=== PATIENT | male | born 1965 | race Caucasian/White ===

== ENCOUNTER 2016-10-06 14:46 | Outpatient (CLI) ==
[2016-07-06 10:52] VITALS: BMI 40.6
[2016-10-06 16:35] LABS: BILIRUBIN,URINE Negative (NEGATIVE); KETONES,URINE Negative (NEGATIVE); LEUKOCYTE ESTERASE ,URINE Negative (NEGATIVE); NITRITE,URINE Negative (NEGATIVE); PH,URINE 5.5 (5-9); PROTEIN,URINE Negative (NEGATIVE); URINE, BLOOD Trace-intact (NEGATIVE)
[2016-10-06 16:40] LABS: ADD URINE MICROSCOPIC YES
== END 2016-10-06 14:47 | disposition home or self-care (01) ==
LOC: LAB 14:46
PROVIDERS: ATTEND General Practice
DX: Z79.899 Other long term (current) drug therapy (principal)
CPT/HCPCS: 81001

== ENCOUNTER 2016-10-06 14:50 | Inpatient (IN) ==
[2016-10-06 15:46] VITALS: BMI 32.1
[2016-10-06 18:07] LABS: BASOPHILS # (AUTO) 0.1 K/uL (0-0.2); BASOPHILS % (AUTO) 0.9 % (0.0-3.0); EOSINOPHILS # (AUTO) 0.2 K/ul (0.0-0.7); EOSINOPHILS % (AUTO) 3.2 % (0.0-7.0); HEMATOCRIT 35.8 % (42.0-52.0); HEMOGLOBIN 13.7 g/dl (14.0-18.0); IMMATURE GRANULOCYTE % (AUTO) 1.1 % (0.0-5.0); LYMPHOCYTES # (AUTO) 1.9 K/uL (0.60-3.4); LYMPHOCYTES % (AUTO) 29.2 (10.0-50.0); MEAN CORPUSCULAR HEMOGLOBIN 32.1 pg (27.0-31.0); MEAN CORPUSCULAR HGB CONC 38.3 (31.8-35.4); MEAN CORPUSCULAR VOLUME 83.8 fl (80.0-94.0); MONOCYTES # (AUTO) 0.4 K/uL (0.4-2.0); MONOCYTES % (AUTO) 6.3 (0-10); NEUTROPHILS # (AUTO) 3.8 K/ul (2.0-6.9); NEUTROPHILS % (AUTO) 59.3; PLATELET COUNT 403 10^3/uL (140-440); RED BLOOD COUNT 4.27 10^6/ul (4.70-6.10); WHITE BLOOD COUNT 6.48 K/ul (4.2-10.2)
[2016-10-06 18:25] LABS: ALBUMIN 3.7 g/dL (3.4-5.0); ALBUMIN/GLOBULIN RATIO 0.84; ANION GAP 22.1; BILIRUBIN,TOTAL 0.46 mg/dL (0.00-1.20); BUN/CREATININE RATIO 9.48; CALCIUM 9.5 mg/dL (8.2-10.2); CREATININE 1.16 mg/dL (0.60-1.10); POTASSIUM 4.1 mmol/L (3.5-5.1); TOTAL PROTEIN 8.1 g/dL (6.4-8.2)
[2016-10-06 19:22] LABS: ABG BASE EXCESS 1 (-2.0-2.0); ABG HCO3 25.5 (22.0-26.0); ABG PCO2 38.5 mmHg (35-45); ABG PH 7.429 (7.35-7.45); ABG TCO2 27 (22.0-28.0)
[2016-10-06] MEDS: HUMALOG SUBCUT PRN ×2 (19:40→21:14)
[2016-10-06] MEDS ORDERED: NON-FORMULARY MEDICATION (Lisinopril [Lisinopril] 20 MG) PO SCH ×22 (20:00)
[2016-10-06 20:02] LABS: AMYLASE 29 U/L (25-115); LIPASE 93 U/L (8-78)
[2016-10-06] MEDS: SODIUM CHLORIDE 0.9%-KCL 20 MEQ 1,000 ML IV SCH (20:12)
--- NOTE | 2016-10-06 20:23 | DI ---
EXAM: Chest PA and lateral HISTORY: Cough FINDINGS: The lungs remain clear since 05/01/2009. The aorta is atherosclerotic. The lungs are hy perinflated. The heart size is normal. The bones are intact. No pneumothorax or pleural effusions ar e detected. IMPRESSION: No acute cardiopulmonary disease. Suggestion of underlying emphysema. Aortic atherosclerosis.
--- NOTE | 2016-10-06 20:27 | CT ---
EXAM: CT scan of the abdomen and pelvis without contrast HISTORY: Pain, cough. TECHNIQUE: Imaging of the abdomen and pelvis was performed without contrast. 3 mm thin axial image s and coronal and sagittal reconstructions were provided for interpretation. Comparison CT scan of the abdomen and pelvis dated 03/31/2016. FINDINGS: The liver, spleen, pancreas, adrenal glands and kidneys appear normal. The proximal uret ers are normal size. The small and large bowel loops caliber. There is no free air. The appendix appears normal. No retroperitoneal abnormalities are seen. No acute abnormalities are seen within the anterior abdominal wall. The helical images obtained through the pelvis demonstrate a normal appearance of the rectum, urinar y bladder. There is no free fluid seen within the pelvis. Scattered diverticula are seen within the sigmoid colon without acute inflammation. No lytic or blastic lesions are seen within the osseou s structures. No lytic or blastic lesions are seen within the osseous structures. There is a tiny n odular density seen in the right lung base seen on axial image number 3. The lesion measures approx imately 5-6 mm maximum. The lung bases are otherwise clear. IMPRESSION: There is no bowel obstruction or acute inflammatory changes seen within the abdomen and pelvis. There is no ureteral obstruction. Unexpected result: There is a nodular density seen in the right lung base measuring 5-6 mm maximum. A 6-month follow-up CT scan of the chest without contrast can be obtained to check for stability o r resolution.
[2016-10-06] MEDS ORDERED: ZESTRIL ONE ×2 (20:58→21:02)
[2016-10-06] MEDS: MAG-OX PO SCH (23:42)
[2016-10-07] MEDS: SODIUM CHLORIDE 0.9%-KCL 20 MEQ 1,000 ML IV SCH ×4 (02:13→22:39)
[2016-10-07] MEDS: HUMALOG SUBCUT PRN ×4 (05:58→17:04)
[2016-10-07] MEDS: MAG-OX PO SCH (08:09)
--- NOTE | 2016-10-07 08:58 | HP ---
CHIEF COMPLAINT: Uncontrolled diabetes, blood sugar 400+ to above Weight loss, 80 pounds Intermittent abdominal pain and not feeling well. HISTORY OF PRESENT ILLNESS: The patient last May 26, 2016 was admitted to the hospital because of abdominal pain. The pain was mostly epigastric and left upper quadrant with nausea but not vomiting or diarrhea. The patient was discharged with acute pancreatitis metabolic, hypertriglyceridemia as well Diabetes Mellitus type 2 uncontrolled improved. The patient's other chronic problems will be listed in the past personal history. PAST PERSONAL HISTORY: Acute pancreatitis, metabolic Hypertension Diabetes Mellitus, type 2, uncontrolled improved control at discharge Elevated fasting insulin, normal plasma c peptide level Elevated BMI 40 History of depression History of anxiety History of migraine History of injury to left ring finger History of chronic tobacco use and abuse, stopped 15 months ago History of substance abuse consisting of marijuana, meth and crack cocaine History of confinement in the alf History of GERD FAMILY HISTORY: Father of abdominal aneurism Mother has diabetes mellitus as well Sister SOCIAL HISTORY: The patient is and resides with his . He used to smoke until 15 months ago. He has history of substance abuse consisting of marijuana, meth and crack cocaine. MEDICATIONS: Pravastatin 40mg near bedtime Metformin 1,000mg twice a day Lisinopril 20mg daily The patient has not taken these medications for about a month. He had lost some 80 pounds, his BMI is now 32.1 from 40. He weighted 295 pounds and went down to 210 pounds at home but is now back to 237. ALLERGIES: No known allergies. REVIEW OF SYSTEMS: CONSTITUTIONAL: The patient is alert without any fever or chills but he is complaining about some intermittent abdominal pain. He is still consuming alcohol but much less. Claims to have some fatigue because of the weight loss although he had regained some 20+ pounds. CYANIDE CASE HARDENER: The patient has history of migraine headaches but no headache at the present time. There is no history of seizures or any transient weakness or speech difficulties. VISUAL: Denies any double vision, blurred vision or transient loss of vision. AUDITORY: Hearing is adequate. No tinnitus, no drainage and no pain. RESPIRATORY: Denies any cough or shortness of breath with usual exertion CARDIOVASCULAR: Denies any chest pain or chest tightness. GASTROINTESTINAL: The patient complains to have some intermittent abdominal pain but not significant. He had lost some 80 pounds but gained a few back. Reason for weight loss is undetermined. GENITOURINARY: The patient denies any pain frequency or urgency of urination and blood. MUSCULOSKELETAL: The patient has low back pain, this is a chronic problem but much less. INTEGUMENT: No rash pruritus ENDOCRINE: The patient is a type 2 diabetic that hadn't been on medication and sugar is markedly elevated beyond the glucometer. The patient does drink plenty of liquids. HEMATOLOGIC: No history of prolonged bleeding or easy bruising. PSYCHIATRIC: The patient has normal affect but has history of depression as well as anxiety. PHYSICAL EXAMINATION: GENERAL: The patient is a 51 year old male admitted to the hospital because of markedly elevated blood sugar without any medication and fatigue and some intermittent abdominal pain with significant weight loss about 80 pounds in 6 months. This patient had previous diagnosis of pancreatitis metabolic. VITAL SIGNS: Temperature 98.3, pulse 73, blood pressure left 128/82 and right 132/84, respiratory rate 18, oxygen saturation 95% on room air. He is listed at 6'0 at 237 pounds and he was listed at 6'1" on previous admission 6 months ago. HEAD: Unremarkable FACE: Symmetrical and equal with facial weakness and no tenderness in the frontal maxillary sinus areas to palpation under pressure. EYES: Pupils equal/reactive to light. About 3mm in size and reactive. Conjunctivae not pale. Sclerae not icteric. MOUTH: Most teeth are missing. Does have partial dentures both upper and lower. THROAT: No inflammation, tumors or exudate. NECK: No masses. No bruit. No tenderness. No rigidity. CHEST: Symmetrical and equal with good expansion and no tenderness to percussion. LUNGS: Breath sounds are heard in both sides with no rales or wheezing. HEART: Audible and regular with good tones. No murmurs. ABDOMEN: Flat, soft with no tenderness. No masses palpable. Bowel sounds active and no Bruit. EXTERNAL GENITALIA: Not examined RECTAL: Not performed LOWER EXTREMITIES: Symmetrical and equal with no significant ankle edema. Both Posterior and Tibials pulses are both present UPPER EXTREMITIES: Symmetrical and equal. ASSESSMENT: 1. Diabetes mellitus, uncontrolled levi hyperglycemia 2. Weight loss, 80 pounds in 6 months etiology undetermined 3. Hypertension 4. Non-complaint, no medication for the last one month or so. 5. History of GERD 6. History of Depression, no evident now 7. History of anxiety, not on medication 8. History of substance abuse; marijuana, methamphetamine and crack cocaine 9. History of migraine 10.History of injury to the left ring finger 11. History of Pancreatitis, metabolic. MTDD
[2016-10-07] MEDS ORDERED: ZESTRIL PO SCH (09:00)
[2016-10-07] MEDS ORDERED: LANTUS SUBCUT SCH (21:00)
[2016-10-08 05:08] LABS: BASOPHILS # (AUTO) 0.1 K/uL (0-0.2); EOSINOPHILS # (AUTO) 0.2 K/ul (0.0-0.7); EOSINOPHILS % (AUTO) 3.5 % (0.0-7.0); HEMATOCRIT 38.1 % (42.0-52.0); IMMATURE GRANULOCYTE % (AUTO) 1.7 % (0.0-5.0); LYMPHOCYTES # (AUTO) 1.5 K/uL (0.60-3.4); LYMPHOCYTES % (AUTO) 28.8 (10.0-50.0); MEAN CORPUSCULAR HEMOGLOBIN 29.9 pg (27.0-31.0); MEAN CORPUSCULAR HGB CONC 34.1 (31.8-35.4); MEAN CORPUSCULAR VOLUME 87.6 fl (80.0-94.0); MONOCYTES # (AUTO) 0.3 K/uL (0.4-2.0); MONOCYTES % (AUTO) 6.5 (0-10); NEUTROPHILS % (AUTO) 58.5; PLATELET COUNT 198 10^3/uL (140-440); RED BLOOD COUNT 4.35 10^6/ul (4.70-6.10)
[2016-10-08] MEDS: SODIUM CHLORIDE 0.9%-KCL 20 MEQ 1,000 ML IV SCH (05:19)
[2016-10-08 05:22] LABS: ALANINE AMINOTRANSFERASE 15 U/L (12-78); ALBUMIN 2.9 g/dL (3.4-5.0); ALBUMIN/GLOBULIN RATIO 0.88; ALKALINE PHOSPHATASE 65 U/L (50-136); ANION GAP 14.3; ASPARTATE AMINO TRANSFERASE 11 U/L (15-37); BILIRUBIN,TOTAL 0.31 mg/dL (0.00-1.20); BLOOD UREA NITROGEN 10 mg/dL (7-18); BUN/CREATININE RATIO 12.19; CALCIUM 8.5 mg/dL (8.2-10.2); CARBON DIOXIDE 16 mmol/L (21-32); CHLORIDE 104 mmol/L (98-107); CHOL/HDL RATIO 22.6 (4.5-6.4); CHOLESTEROL 406 mg/dL (0-200); CREATININE 0.82 mg/dL (0.60-1.10); GLUCOSE 373 mg/dL (70-100); HDL CHOLESTEROL 18 mg/dL (35-60); POTASSIUM 4.3 mmol/L (3.5-5.1); SODIUM 130 mmol/L (136-145); TOTAL PROTEIN 6.2 g/dL (6.4-8.2)
[2016-10-08 05:31] LABS: TRIGLYCERIDES > 1420 mg/dL (30-150)
[2016-10-08] MEDS: HUMALOG SUBCUT PRN ×2 (07:58→11:06)
[2016-10-08] MEDS: MAG-OX PO SCH (07:59)
--- NOTE | 2016-10-08 09:36 | PN ---
DATE OF VISIT: 10/07/16 SUBJECTIVE: The patient is alert and oriented times four not dyspneic or tachypneic. He denies any abdominal pain or chest pain. His appetite seems to be good and consumed 100% of his meals. VITALS: Temperature 97.7, pulse 73, blood pressure 108/60, respiratory 20 and oxygen saturation 92% at room air probably not correct previous ones were 96%. This patient was placed back on Lisinopril and this will be discontinued since his blood pressure had been normal. This blood pressure may have returned to normal since he had lost some 80 pounds. LUNGS: Clear to auscultation in both sides. HEART: Normal sinus rhythm ABDOMEN: Non tender Blood sugar is lower. This patient will be receiving Lantus 40 unit SUBCUT in the evening on sliding scale per protocol for breakfast, lunch and supper. The patient's CAT scan of the abdomen and pelvis without contrast showed no bowel obstruction, no acute inflammatory changes within the abdomen and pelvis, no ureteral obstruction, normal spleen, pancreas, adrenals and kidneys. This patient had previous pancreatitis and fortunately didn't develop pancreatic cysts. The nodular density right lung base 5-6mm in size [address] Chest X-ray did not visualize this 5-6mm nodule at the right lung base. MTDD
[2016-10-08 14:22] VITALS: BP 122/80; TEMP 98.1
[2016-10-09 07:30] LABS: C-PEPTIDE 2.3 ng/mL (1.1-4.4)
--- NOTE | 2016-10-10 11:35 | DS ---
PATIENT IDENTIFICATION: 51 year old male admitted to the hospital because of uncontrolled blood sugar and he had not been taking any medication for his diabetes for some time. He claimed to have lost his insurance. He now has an insurance again. He had lost also some 80 pounds from the last time he was seen at the office. He claimed to have some intermittent abdominal pain and fatigue. Because of the hyperglycemia and loss of weight, plus fatigue and lack of medication, admission was felt necessary in order to define the patient' s problems. HOSPITAL COURSE: The patient is prescribed medication which he had not been taking consisting of Pravastatin 40 mg daily, Metformin 1,000 mg twice a day, Lisinopril 20 mg daily. LUNGS: Clear to auscultation. HEART: Audible and regular with no murmurs. ABDOMEN: Unremarkable. The initial blood sugar was 553 mg percent. Arterial blood gases with pH of 7.429, PCO2 38.5, PO2 73, bicarbonate 25.5, total CO2 27, oxygen saturation 95 at room air. The A1C was 13.4. GFR estimated 66. Lipase slightly elevated at 93, Amylase normal. The fasting triglycerides the next day was 1420, cholesterol 406, HDL 18, cholesterol/HDL ratio 22.6. I had explained this to the patient, as well as his that this is markedly abnormal. The HDL that is very low is an independent predictor of coronary artery disease. The patient was placed on Lantus Insulin and sliding scale. The blood sugars were fluctuating and was covered ranging from 265 to 513. A fasting Insulin is 5.0. Plasma C-Peptid is normal at 2.3. ANAYELI 65 autoantibody-no results at this time. The patient claimed to be feeling well and he wanted to go home since he is moving from one residence to a new one. He denies any chest pain or abdominal pain and he denies any headaches or any visual disturbances. He denies any pain on urination and has no difficulty breathing. I had advised him about the Insulin that he is using and that if he is exerting, that he should check his sugar since exertion sometimes would bring the sugar down and might produce hypoglycemia, which otherwise will not be if he is not exerting. LUNGS: Clear to auscultation in both sides at discharge. HEART: Normal sinus rhythm. NECK: No masses, no bruit. EXTREMITIES: He had movement of all extremities. FINAL DIAGNOSES: 1. DIABETES MELLITUS, UNCONTROLLED 2. NONCOMPLIANCE 3. SEVERE HYPERTRIGLYCERIDEMIA 4. HISTORY OF PANCREATITIS, METABOLIC 5. QUESTIONABLE PANCREATITIS, SLIGHTLY ELEVATED LIPASE 93, UPPER NORMAL 78. MEDICATIONS AT DISCHARGE: 1. Lantus Solostar 40 Units subcutaneously at 9 p.m. 2. Humalog plain per sliding scale before breakfast, before lunch and before supper. 3. Metformin 850 mg twice a day. 4. Crestor 20 mg daily. Record the blood tests results before breakfast, before lunch and before supper and bring the results on follow up appointment a week from today. Test strips were ordered, as well as Lancets were refilled. PROGNOSIS: Guarded. MTDD
== END 2016-10-08 15:55 | disposition home or self-care (01) | DRG 637 ==
LOC: MEDSURG B 14:50
PROVIDERS: ADMIT General Practice; ATTEND General Practice
DX: E11.65 Type 2 diabetes mellitus with hyperglycemia (principal); K85.90 Acute pancreatitis without necrosis or infection, unspecified; T38.3X6A Underdosing of insulin and oral hypoglycemic [antidiabetic] drugs, initial encounter; T46.4X6A Underdosing of angiotensin-converting-enzyme inhibitors, initial encounter; T46.6X6A Underdosing of antihyperlipidemic and antiarteriosclerotic drugs, initial encounter; E78.1 Pure hyperglyceridemia; R63.4 Abnormal weight loss; R53.83 Other fatigue; R10.9 Unspecified abdominal pain; Z91.120 Patient's intentional underdosing of medication regimen due to financial hardship; Z79.899 Other long term (current) drug therapy; Z87.19 Personal history of other diseases of the digestive system; Z68.32 Body mass index [BMI] 32.0-32.9, adult
CPT/HCPCS: 36415; 80053; 80061; 81001; 82150; 82803; 82962; 83036; 83519; 83525; 83690; 84443; 84681; 85025; 93005; 93010; 97802; 99223; 99232; 99239

== ENCOUNTER 2017-02-25 11:52 | Outpatient (CLI) | payer OTHER ==
[2017-02-25 13:30] LABS: BASOPHILS # (AUTO) 0.1 K/uL (0-0.2); BASOPHILS % (AUTO) 0.7 % (0.0-3.0); EOSINOPHILS # (AUTO) 0.4 K/ul (0.0-0.7); HEMATOCRIT 48.2 % (42.0-52.0); HEMOGLOBIN 16.8 g/dl (14.0-18.0); IMMATURE GRANULOCYTE % (AUTO) 0.8 % (0.0-5.0); LYMPHOCYTES # (AUTO) 2.4 K/uL (0.60-3.4); MEAN CORPUSCULAR HEMOGLOBIN 29.2 pg (27.0-31.0); MEAN CORPUSCULAR HGB CONC 34.9 (31.8-35.4); MEAN CORPUSCULAR VOLUME 83.7 fl (80.0-94.0); MONOCYTES # (AUTO) 0.4 K/uL (0.4-2.0); MONOCYTES % (AUTO) 4.9 (0-10); NEUTROPHILS # (AUTO) 5.8 K/ul (2.0-6.9); NEUTROPHILS % (AUTO) 63.6; PLATELET COUNT 250 10^3/uL (140-440); RED BLOOD COUNT 5.76 10^6/ul (4.70-6.10); WHITE BLOOD COUNT 9.03 K/ul (4.2-10.2)
[2017-02-25 13:44] LABS: ALBUMIN 4.1 g/dL (3.4-5.0); ALBUMIN/GLOBULIN RATIO 1.24; ANION GAP 14.7; BILIRUBIN,TOTAL 0.63 mg/dL (0.00-1.20); BILIRUBIN,URINE 1+ (NEGATIVE); BUN/CREATININE RATIO 19.31; CALCIUM 10.1 mg/dL (8.2-10.2); CHOL/HDL RATIO 6.2 (4.5-6.4); CREATININE 0.88 mg/dL (0.60-1.10); KETONES,URINE Negative (NEGATIVE); LEUKOCYTE ESTERASE ,URINE Negative (NEGATIVE); NITRITE,URINE Negative (NEGATIVE); PH,URINE 5.5 (5-9); POTASSIUM 3.7 mmol/L (3.5-5.1); PROTEIN,URINE 2+ (NEGATIVE); TOTAL PROTEIN 7.4 g/dL (6.4-8.2); URINE, BLOOD Negative (NEGATIVE)
[2017-02-25 13:46] LABS: ADD URINE MICROSCOPIC YES
== END 2017-02-25 11:53 | disposition home or self-care (01) ==
LOC: LAB 11:52
PROVIDERS: ATTEND General Practice
DX: E11.9 Type 2 diabetes mellitus without complications (principal); I10 Essential (primary) hypertension; Z79.899 Other long term (current) drug therapy
CPT/HCPCS: 36415; 80053; 80061; 81001; 83036; 85025

== ENCOUNTER 2018-03-04 19:07 | Emergency (ER) | payer OTHER ==
[2018-03-04 19:11] VITALS: BP 144/97; TEMP 98.7; BMI 31.1
[2018-03-04] MEDS ORDERED: KEFLEX PO STA (19:31)
--- NOTE | 2018-03-04 19:33 | ED.PDOC ---
General ED Provider: Dr. IDALIA DIMAS Chief Complaint: Finger Pain/Injury Stated Complaint: Came left index finger paina nd swelling got Injured 3-4 days ago,, while working on and project. he has DM2, Time Seen by Physician: 20:24 Mode of Arrival: Walk-In Information Source: Patient [facility] and Triage Documentation Reviewed and Agree: Yes Reviewed sepsis parameters & appropriate labs ordered?: Yes System Inflammatory Response Syndrome: Not Applicable Sepsis Protocol: For patient's 13 years and over: Temp is 96.8 and below OR 101 and greater Pulse >90 BPM Resp >20/minute Acutely Altered Mental Status Are patient's symptoms suggestive of a new infection, such as: -Pneumonia -Skin, Soft Tissue -Endocarditis -UTI -Bone, Joint Infection -Implantable Device -Acute Abdominal Infection -Wound Infection -Meningitis -Blood Stream Catheter Infection -Unknown Skin Complaint Exam - Skin/Soft Tissue Complaint/Exam Onset/Duration: left index finger Symptoms Are: Still present Timing: Constant Initial Severity: Mild Current Severity: Mild Character: Reports: Redness, Swelling Aggravating: Reports: Touch Alleviating: Reports: None Associated Signs and Symptoms: Reports: Tenderness, Red streaks. Denies: Fever , Chills, Itching, Drainage, Bruising, Joint swelling Skin Findings: Present: Erythema, Induration Differential Diagnoses: Other (paronychia) Review of Systems - Review Of Systems Constitutional: Reports: No symptoms Eyes: Reports: No symptoms Ears, Nose, Mouth, Throat: Reports: No symptoms Respiratory: Reports: No symptoms Cardiac: Reports: No symptoms GI: Reports: No symptoms : Reports: No symptoms Musculoskeletal: Reports: No symptoms Skin: Reports: No symptoms Neurological: Reports: No symptoms Endocrine: Reports: No symptoms Hematologic/Lymphatic: Reports: No symptoms All Other Systems: Reviewed and Negative Past Medical History - Past Medical History Previously Healthy: Yes Endocrine: Reports: DM 2, Dyslipidemia Cardiovascular: Reports: Hypertension Respiratory: Reports: None Hematological: Reports: None Gastrointestinal: Reports: GERD Genitourinary: Reports: None Neuro/Psych: Reports: Migraine Musculoskeletal: Reports: None Cancer: Reports: None - Surgical History General Surgical History: Reports: Other (LEFT RING FINGER SEWN BACK ON) - Family History Family History: Reports: None - Social History Smoking Status: Former smoker Hx Substance Use: Yes (marijuanna use) Alcohol Screening: Occasionally - Immunizations Tetanus Shot up to Date: No Physical Exam - Physical Exam Appearance: Well-appearing, No pain distress, Well-nourished Eyes: YARITZA, EOMI, Conjunctiva clear ENT: Ears normal, Nose normal, Oropharynx normal Respiratory: Airway patent, Breath sounds clear, Breath sounds equal, Respirations nonlabored Cardiovascular: RRR, Pulses normal, No rub, No murmur GI/: Soft, Nontender, No masses, Bowel sounds normal, No Organomegaly Musculoskeletal: Normal strength, ROM intact, No edema, No calf tenderness Skin: Warm, Dry, Normal color Neurological: Sensation intact, Motor intact, Reflexes intact, Cranial nerves intact, Alert, Oriented Psychiatric: Affect appropriate, Mood appropriate Critical Care Note - Critical Care Note Total Time (mins): 30 Course - Course Orders, Labs, Meds: Orders Category Date Time Status Cephalexin [Keflex] MEDS 03/04/18 19:31 Discontinued 500 mg PO ONCE STA Medications Discontinued Medications Generic Name Dose Route Start Last Admin Trade Name Freq PRN Reason Stop Dose Admin Cephalexin 500 mg 03/04/18 19:31 03/04/18 19:48 Keflex PO 03/04/18 19:32 500 mg ONCE STA Administration Vital Signs: Temp Pulse Resp BP Pulse Ox 03/04/18 19:08 98.7 F 103 H 18 144/97 H 97 Departure - Departure Time of Disposition: 19:33 Disposition: HOME SELF-CARE Discharge Problem: Paronychia Instructions: Paronychia (ED) Condition: Stable Pt referred to PMD for follow-up: Yes IPMP verified?: No Additional Instructions: keep hand elevated, Tylenol prn Please have f/u with Dr Pepper Prescriptions: Cephalexin [Keflex] 500 mg PO Q12HR #14 capsule Allergies/Adverse Reactions: Allergies No Known Allergies Allergy (Unverified 03/04/18 19:11) Home Medications: Ambulatory Orders Cephalexin [Keflex] 500 mg PO Q12HR #14 capsule 03/04/18 Disposition Discussed With: Patient, Family
== END 2018-03-04 20:08 | disposition home or self-care (01) ==
LOC: ED 19:07
DX: L03.012 Cellulitis of left finger (principal); E11.9 Type 2 diabetes mellitus without complications
CPT/HCPCS: 99282

== ENCOUNTER 2018-03-06 15:33 | Emergency (ER) ==
[2018-03-06 15:45] VITALS: BP 155/101; TEMP 98.2; BMI 29.0
[2018-03-06] MEDS ORDERED: LIDOCAINE HCL 1% SDV SUBCUT STA (16:11)
--- NOTE | 2018-03-06 17:11 | ED.PDOC ---
General ED Provider: Dr. KRISTIE JIM Chief Complaint: Finger Pain/Injury Stated Complaint: left index finger swelling and pain for the past few days. Has been on antibiotics but not better. Swelling is worse and has come to a head. Time Seen by Physician: 17:08 Mode of Arrival: Walk-In Information Source: [facility] and T[facility] Documentation Reviewed and Agree: Yes Does patient meet sepsis criteria?: No System Inflammatory Response Syndrome: Not Applicable Sepsis Protocol: For patient's 13 years and over: Temp is 96.8 and below OR 101 and greater Pulse >90 BPM Resp >20/minute Acutely Altered Mental Status Are patient's symptoms suggestive of a new infection, such as: -Pneumonia -Skin, Soft Tissue -Endocarditis -UTI -Bone, Joint Infection -Implantable Device -Acute Abdominal Infection -Wound Infection -Meningitis -Blood Stream Catheter Infection -Unknown Review of Systems - Review Of Systems Constitutional: Reports: No symptoms Skin: Reports: Lesions All Other Systems: Reviewed and Negative Past Medical History - Past Medical History Previously Healthy: Yes Endocrine: Reports: DM 2, Dyslipidemia Cardiovascular: Reports: Hypertension Respiratory: Reports: None Hematological: Reports: None Gastrointestinal: Reports: GERD Genitourinary: Reports: None Neuro/Psych: Reports: Migraine Musculoskeletal: Reports: None Cancer: Reports: None - Surgical History General Surgical History: Reports: Other (LEFT RING FINGER SEWN BACK ON) - Family History Family History: Reports: None - Social History Smoking Status: Former smoker Hx Substance Use: Yes (marijuanna use) Alcohol Screening: Occasionally - Immunizations Tetanus Shot up to Date: (unknown) Physical Exam - Physical Exam Appearance: Well-appearing, No pain distress, Well-nourished Respiratory: Airway patent, Breath sounds clear, Breath sounds equal, Respirations nonlabored Cardiovascular: RRR, Pulses normal, No rub, No murmur Musculoskeletal: Normal strength, ROM intact, No edema, No calf tenderness Skin: Warm, Dry, Normal color Neurological: Sensation intact, Motor intact, Reflexes intact, Cranial nerves intact, Alert, Oriented Psychiatric: Affect appropriate, Mood appropriate Critical Care Note - Critical Care Note Total Time (mins): 0 Course - Course Orders, Labs, Meds: Orders Category Date Time Status WOUND CULTURE Stat LAB 03/06/18 17:09 Completed Lidocaine HCl/Pf [Lidocaine HCl 1% Sdv] MEDS 03/06/18 16:11 Discontinued 5 ml SUBCUT ONCE STA Medications Discontinued Medications Generic Name Dose Route Start Last Admin Trade Name Kimberli PRN Reason Stop Dose Admin Lidocaine HCl 5 ml 03/06/18 16:11 03/06/18 16:56 Lidocaine Hcl 1% Sdv SUBCUT 03/06/18 16:12 5 ml ONCE STA Administration Vital Signs: Temp Pulse Resp BP Pulse Ox 03/06/18 15:35 98.2 F 84 20 155/101 H 96 Departure - Departure Time of Disposition: 17:20 Disposition: HOME SELF-CARE Discharge Problem: Paronychia Instructions: Paronychia (ED) Condition: Stable Pt referred to PMD for follow-up: Yes IPMP verified?: No Additional Instructions: Continue home antibiotics Follow up with PCP in 3 days Keep wound clean and dry Prescriptions: Acetaminophen with Codeine [Tylenol #3 Tab] 1 tab PO Q8H #10 tablet Sulfamethoxazole/Trimethoprim [Bactrim Ds Tablet] 1 each PO BID #20 tablet Allergies/Adverse Reactions: Allergies No Known Allergies Allergy (Unverified 03/04/18 19:11) Home Medications: Ambulatory Orders Cephalexin [Keflex] 500 mg PO Q12HR #14 capsule 03/04/18 Acetaminophen with Codeine [Tylenol #3 Tab] 1 tab PO Q8H #10 tablet 03/06/18 Sulfamethoxazole/Trimethoprim [Bactrim Ds Tablet] 1 each PO BID #20 tablet 03/06 Disposition Discussed With: Patient
== END 2018-03-06 17:38 | disposition home or self-care (01) ==
LOC: ED 15:33
DX: L03.012 Cellulitis of left finger (principal)
CPT/HCPCS: 87070; 87186; 99283

== ENCOUNTER 2018-10-14 15:53 | Outpatient (CLI) | END 2018-10-14 15:54 | disposition home or self-care (01) | LOC: RHC-LAB 15:53 | PROVIDERS: ATTEND General Practice | DX: R51 Headache (principal); F32.9 Major depressive disorder, single episode, unspecified; E78.5 Hyperlipidemia, unspecified; E11.9 Type 2 diabetes mellitus without complications; I10 Essential (primary) hypertension; G62.9 Polyneuropathy, unspecified | CPT/HCPCS: 36415; 80053; 80061; 81001; 83036; 83519; 83525; 84681; 85025 ==

== ENCOUNTER 2018-10-22 15:27 | Outpatient (CLI) | END 2018-10-22 15:28 | disposition home or self-care (01) | LOC: RHC-LAB 15:27 | PROVIDERS: ATTEND General Practice | DX: J02.9 Acute pharyngitis, unspecified (principal) | CPT/HCPCS: 87502; 87651 ==